=== PATIENT | male | born 1980 | race Hispanic/Latino ===

== ENCOUNTER 2024-05-19 07:48 | Outpatient (CLI) | payer BC ==
[2024-05-19 09:48] LABS: #Basophils 0.05 10x3/uL (0.0-0.2); %Basophils 0.6 % (0.0-1.0); %Eosinophils 0.4 % (0.0-10.0); %Lymphocytes 7.4 % (21.0-51.0); %Monocytes 5.7 % (0.0-10.0); %Neutrophils 84.7 % (42.0-75.0); Hematocrit 47.1 % (42.0-52.0); Hemoglobin 16.2 g/dL (14.0-18.0); Mean Corpuscular HGB CONC 34.4 g/dL (32.0-36.0); Mean Corpuscular Hemoglobin 32.3 pg (27.0-31.0); Mean Corpuscular Volume 93.8 fL (78.0-98.0); Mean Platelet Volume 10.6 fL (7.4-10.4); Platelet Count 128 10x3/uL (130-400); RBC Distribution Width 12.6 % (11.5-14.5); Red Blood Cell (RBC) Count 5.02 mill/uL (4.70-6.10)
[2024-05-19 09:56] LABS: Anion Gap 13 mmol/L (10-20); BUN (Urea Nitrogen) 10 mg/dL (8.9-20.6); Calc. Creatinine Clearance 0 mL/min (70-130); Calcium 8.8 mg/dL (7.8-10.44); Carbon Dioxide 25 mmol/L (22-29); Chloride 106 mmol/L (98-107); Estimated GFR 103; Glucose 105 mg/dL (70-105); Potassium 3.8 mmol/L (3.5-5.1); Sodium 140 mmol/L (136-145)
== END 2024-05-19 07:49 | disposition home or self-care (01) ==
LOC: LABBT 07:48
PROVIDERS: ATTEND Orthopaedic Surgery Hand Surgery
DX: Z01.818 Encounter for other preprocedural examination (principal); M60.20 Foreign body granuloma of soft tissue, not elsewhere classified, unspecified site; L02.91 Cutaneous abscess, unspecified
CPT/HCPCS: 80048; 85025; 93005; 93010

== ENCOUNTER 2024-05-20 11:09 | Day surgery (SDC) | payer BC ==
[2024-05-19 08:36] VITALS: BMI 34.4
[2024-05-20] MEDS ORDERED: Bacitracin Zinc Ointment 30 gm TUBE ONE (12:46)
[2024-05-20] MEDS ORDERED: Bupivacaine PF 0.5% 30 ML VIAL ONE (12:47)
[2024-05-20] MEDS ORDERED: PROPOFOL 20 ML ONE (13:11)
[2024-05-20] MEDS ORDERED: fentaNYL PF 100 MCG/2 ML SYRINGE ONE ×2 (13:11→14:45)
[2024-05-20] MEDS ORDERED: Midazolam HCl 2 mg/2 ml Vial ONE ×3 (13:11→13:18)
[2024-05-20] MEDS ORDERED: CEFAZOLIN 2 GM VIAL ONE (13:20)
[2024-05-20] MEDS ORDERED: Midazolam HCl 2 mg/2 ml Vial SLOW IVP SCH (13:30)
[2024-05-20] MEDS ORDERED: Lidocaine 1% PF 5 ML VIAL ONE (13:56)
[2024-05-20] MEDS ORDERED: Ondansetron PF 4 MG/2 ML Vial ONE (14:42)
[2024-05-20] MEDS ORDERED: Ketorolac Tromethamine 30 MG (1 mL) VIAL ONE ×2 (14:42→15:47)
[2024-05-20] MEDS ORDERED: Dexamethasone 20 MG/5 ML VIAL ONE (14:42)
== END 2024-05-20 16:38 | disposition home or self-care (01) ==
LOC: SDC 11:09
PROVIDERS: ATTEND Orthopaedic Surgery Hand Surgery
PROC: 0JBJ0ZZ Excision of Right Hand Subcutaneous Tissue and Fascia, Open Approach (ICD-10-PCS; principal; 2024-05-20)
PROC: 01Q60ZZ Repair Radial Nerve, Open Approach (ICD-10-PCS; principal; 2024-05-20)
DX: M60.241 Foreign body granuloma of soft tissue, not elsewhere classified, right hand (principal); L90.5 Scar conditions and fibrosis of skin; I10 Essential (primary) hypertension; E07.9 Disorder of thyroid, unspecified; Z87.891 Personal history of nicotine dependence; Z79.899 Other long term (current) drug therapy
CPT/HCPCS: 87070; 87077; 87186; 87205; 88304; 88305; A6223; J0665; J1100; J1885; J2250; J2405; J2704